=== PATIENT | female | born 1960 | race Hispanic/Latino ===

== ENCOUNTER 2017-08-13 23:58 | Emergency (ER) | payer OTHER ==
[~2017-08-13] VITALS: Ht 165.1 cm; Wt 60.8 kg
[~2017-08-13 23:58] MED LIST: CALCIUM600 MG PO; COUMADIN5 MG PO; DIGOXIN125 MCG PO; FEROSUL325 MG PO; FUROSEMIDE40 MG PO; LEVOTHYROXINE50 MCG PO; LOVASTATIN20 MG PO; VITAMIN D1000 UNI1 PO
== END 2017-08-14 00:33 | disposition home or self-care (01) ==
LOC: ER 23:58
DX: H61.22 Impacted cerumen, left ear (principal); E11.9 Type 2 diabetes mellitus without complications; E78.5 Hyperlipidemia, unspecified; Z95.1 Presence of aortocoronary bypass graft
CPT/HCPCS: 99282

== ENCOUNTER → 2017-09-05 | Outpatient (CLI) | payer OTHER ==
--- NOTE | 2017-09-05 08:35 | Diagnostic Imaging Report ---
PROCEDURE:ABDOMINAL ULTRASOUND COMPARISON:Patients [facility], US, US ABDOMEN COMPLETE, 11/11/2016, 8:16. Patients [facility], US, US ABDOMEN COMPLETE, 02/12/2016, 8:25. INDICATION:Ascites TECHNIQUE: Grayscale and color Doppler ultrasound abdomen FINDINGS: Image segment of the inferior vena cava and abdominal aorta are normal. Normal pancreatic head and proximal body. The tail is obscured by bowel gas. Right liver span 18.5 cm. Mildly increased echogenicity with a smooth margin. Portal vein diameter 1.2 cm; normal flow direction. 1 cm calcified gallstone. Gallbladder wall thickness 2 mm. Common bile duct diameter 3 mm. No sonographic Schultz sign. Right kidney: 10.5 x 4.1 x 5.9 cm Left kidney: 9.3 x 5.3 x 4.6 cm The right inferior pole contains a 0.5 cm hyperechoic parenchymal nodule without shadowing. Kidneys are otherwise normal bilaterally. Spleen length: 13 cm. No ascites. CONCLUSION: 1. Hepatomegaly with steatosis. Splenomegaly and prominent portal vein suggesting developing portal hypertension. No ascites. 2. Cholelithiasis. 3. Right kidney 0.5 cm inferior pole nodule, likely an angiomyolipoma. Recommend followup evaluation in 6 months. Dictated by: Landon Biswas M.D. on 09/05/2017 at 8:36 Electronically approved by: Landon Biswas M.D. on 09/05/2017 at 8:36
--- NOTE | 2017-09-08 08:57 | Diagnostic Imaging Report ---
#[id number] - [id number] #BILATERAL DIGITAL SCREENING MAMMOGRAM WITH CAD: 09/05/2017 CLINICAL: Routine screening. Comparison is made to exam dated: 08/30/2016 mammogram - [facility]. Current study contains 4 films. The tissue of both breasts is heterogeneously dense. This may lower the sensitivity of mammography. Current study was also evaluated with a Computer Aided Detection (CAD) system. There are benign vascular calcifications in both breasts. There also are benign scattered calcifications in both breasts. There is a curvilinear area of distortion in the upper outer aspect of the left breast suggestive of a lipoma-this appears more prominent than previous study. No significant masses, calcifications, or other findings are seen in either breast. There has been no significant interval change. IMPRESSION: BENIGN There is no mammographic evidence of malignancy. A 1 year screening mammogram is recommended. The patient will be notified by letter of the results. Scar Watkins Jr., D.O. cw/:09/07/2017 11:56:50 Foreign Language Professor: Dafne CAMPOS(R)(M), [facility] letter sent: Compared to Prior B9 Mammogram BI-RADS: 2 Benign
== END ==
LOC: US 07:31
PROVIDERS: ATTEND Internal Medicine Gastroenterology
DX: Z12.31 Encounter for screening mammogram for malignant neoplasm of breast (principal); R18.8 Other ascites; R16.0 Hepatomegaly, not elsewhere classified; K76.0 Fatty (change of) liver, not elsewhere classified; K80.20 Calculus of gallbladder without cholecystitis without obstruction; N28.9 Disorder of kidney and ureter, unspecified
CPT/HCPCS: 76700; 77067

== ENCOUNTER → 2018-07-31 | Outpatient (CLI) | payer OTHER ==
--- NOTE | 2018-07-31 09:19 | Diagnostic Imaging Report ---
EXAM: US ABDOMEN COMPLETE DATE: 07/31/2018 7:33 AM INDICATION: Ascites COMPARISON: Abdominal ultrasound 09/05/2017 TECHNIQUE: Transverse and longitudinal ho scale and color doppler sonographic images of the upper abdomen were obtained. FINDINGS: LIVER 16.3 cm in the right midclavicular line. Increased echogenicity, normal contour, no masses. SPLEEN 12.8 cm in maximum diameter. Normal echogenicity, no masses. GALLBLADDER Multiple shadowing calculi without wall thickening or pericholecystic fluid. Negative sonographic Schultz's sign. BILE DUCTS No intra nor extra-hepatic biliary dilation. Common bile duct measures 0.4 cm PANCREAS: Visualized portions are normal. RIGHT KIDNEY: 10.2 cm Echogenicity: Normal Collecting System: No hydronephrosis Stones: None Cyst/Mass: 0.8 x 0.6 x 0.7 cm nonshadowing hyperechoic focus in the lower pole. LEFT KIDNEY: 9.1 cm Echogenicity: Normal Collecting System: No hydronephrosis Stones: None Cyst/Mass: None VESSELS: Aorta: Nonaneurysmal Inferior Vena Cava: Patent Main Portal Vein: 1.2 cm, normal size with hepatopetal flow. FREE FLUID: None IMPRESSION: Cholelithiasis without sonographic evidence of acute cholecystitis. Increased hepatic parenchymal echogenicity compatible with steatosis. No ascites per clinical query. 8 mm hyperechoic lesion in the lower pole of the right kidney has marginally increased in size though remains too small to definitively characterize. 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 A follow-up renal ultrasound in one year is suggested to assess for stability. Signed by: Dr. David Alan M.D. on 07/31/2018 9:16 AM
== END ==
LOC: US 07:07
PROVIDERS: ATTEND Internal Medicine Gastroenterology
DX: R18.8 Other ascites (principal)
CPT/HCPCS: 76700

== ENCOUNTER → 2022-06-03 | Outpatient (CLI) | payer OTHER ==
[~2022-06-03] MED LIST changes: +ALBUMIN 25% 12.5GM 50ML 150 ML IV ONE; +Benzonatate PO; +DIGOXIN125 MCG; +FAMOTIDINE20 MG PO; +FEROSUL325 MG; +FUROSEMIDE40 MG; +LEVOTHYROXINE100 MCG; +LISINOPRIL2.5 MG; +LOVASTATIN40 MG; +METFORMIN HCL850 MG; +SODIUM CHLORI1000 MG; +SPIRONOLACTONE50 MG PO; +WARFARIN SODIUM5 MG PO
[2022-06-03 11:52] LABS: HEMOGLOBIN 9.6 g/dL (12.0-16.0)
[2022-06-03 12:05] LABS: INR 2.52; PROTHROMBIN TIME 27.3 seconds (11.9-14.5)
[2022-06-03 12:06] LABS: PARTIAL THROMBOPLASTIN TIME 52.8 seconds (23.8-35.5)
[2022-06-03 14:26] LABS: BODY FLUID APPEARANCE TURBID; BODY FLUID COLOR RED; BODY FLUID TYPE PERITONEAL
[2022-06-03 14:28] LABS: RBC,BODY FLUID 50000 cells/uL; WBC,BODY FLUID 347 cells/uL
[2022-06-03 17:02] LABS: LYMPHOCYTES,BODY FLUID 28 %; MONO/MACROPHG,BODY FLUID 21 %; NEUTROPHILS,BODY FLUID 23 %; OTHER CELLS,BODY FLUID 28 %
== END ==
LOC: US 11:07
PROVIDERS: ATTEND Internal Medicine Gastroenterology
DX: R18.8 Other ascites (principal)
CPT/HCPCS: 36415; 49083; 84157; 85014; 85049; 85610; 85730; 87070; 87205; 89051; C1729